=== PATIENT | male | born 1960 | race Caucasian/White ===

== ENCOUNTER 2021-09-09 09:34 | Inpatient (IN) | payer OTHER ==
[~2021-09-09] VITALS: Ht 167.6 cm; Wt 80.2 kg
[2021-09-09] MEDS ORDERED: AMLO5 PO (09:51)
[2021-09-09] MEDS ORDERED: ATOR40TA PO (09:52)
[2021-09-09] MEDS ORDERED: CITALOPRAM HBR40 M6 PO (09:53)
[2021-09-09] MEDS ORDERED: LEVE500 PO (09:53)
[2021-09-09] MEDS ORDERED: DIAZEPAM5 M2 PO (09:54)
[2021-09-09] MEDS ORDERED: Ropinirole HCl5 MG PO (09:54)
[2021-09-09] MEDS ORDERED: MONT10T PO (09:54)
[2021-09-09] MEDS ORDERED: Ventolin/Prove6.7 GM INH (09:55)
[2021-09-09] MEDS ORDERED: ASPI325 PO (09:55)
[2021-09-09] MEDS ORDERED: BACLOFEN10 M4 PO (09:55)
[2021-09-09 10:02] LABS: BASOPHILS ABSOLUTE AUTO 0.02 K/mm3 (0.00-0.23); BASOPHILS PERCENT AUTO 0 % (0-2); EOSINOPHILS PERCENT AUTO 0 % (0-6); Hematocrit 49.8 % (37.0-53.0); Hemoglobin 15.8 g/dL (13.5-17.5); IMMATURE GRAN ABSOLUTE AUTO 0.06 K/mm3 (0.00-0.10); IMMATURE GRAN PERCENT AUTO 0 % (0-1); LYMPHOCYTES ABSOLUTE AUTO 0.84 K/mm3 (0.84-5.20); LYMPHOCYTES PERCENT AUTO 6 % (21-46); MONOCYTES ABSOLUTE AUTO 0.74 K/mm3 (0.16-1.47); MONOCYTES PERCENT AUTO 5 % (4-13); Mean Corpuscular HGB 30.7 pg (26.0-34.0); Mean Corpuscular HGB Conc 31.7 g/dL (31.5-36.5); Mean Corpuscular Volume 97 fL (80-100); Mean Platelet Volume 9.7 fL (9.1-12.4); NEUTROPHILS ABSOLUTE AUTO 13.04 K/mm3 (1.96-9.15); NEUTROPHILS PERCENT AUTO 89 % (41-73); Platelet Count 319 K/mm3 (150-400); RDW Coefficient Variation 12.6 % (11.7-14.2); RDW Standard Deviation 45.2 fL (35.1-46.3); Red Blood Cell Count 5.15 M/mm3 (4.30-5.90)
[2021-09-09 10:13] LABS: Alanine Aminotransfer (ALT/SGP 45 U/L (12-78); Albumin, Blood 3.1 g/dL (3.4-5.0); Albumin/Globulin Ratio 0.6 (0.8-1.8); Alk Phos 123 U/L (50-136); Anion Gap 8 mmol/L (6-16); Aspartate Aminotrans (AST/SGOT 58 U/L (12-37); Bilirubin, Total 0.7 mg/dL (0.1-1.0); Blood Urea Nitrogen 13 mg/dL (8-24); CO2, Blood 28 mmol/L (21-32); Calcium, Blood 8.9 mg/dL (8.5-10.1); Chloride, Blood 104 mmol/L (98-108); Creatinine, Blood 0.81 mg/dL (0.60-1.20); Globulin, Blood 5.3 g/dL (2.2-4.0); Glomerular Filtration Rate >60 (60-); Glucose, Blood 165 mg/dL (70-99); Potassium, Blood 5.2 mmol/L (3.5-5.5); Sodium, Blood 140 mmol/L (136-145); Total Protein, Blood 8.4 g/dL (6.4-8.2)
[2021-09-09 10:39] LABS: Influenza A, PCR NEGATIVE (NEGATIVE); Influenza B, PCR NEGATIVE (NEGATIVE); Resp Syncytial Virus, PCR NEGATIVE (NEGATIVE); SARS-Cov-2 (COVID-19) PCR, MMC NEGATIVE (NEGATIVE)
--- NOTE | 2021-09-09 13:49 | NUR ---
ER ADMIT Pt arrived to his room from the ER and was assisted to bed. He is a/o x 4. 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 He is currently on 4 LPM via [place] with sats in the . IV fluids are infusing as ordered. Charge nurse is calling the sister for a current med list. He is able to make his needs known and has his call light and personal items in reach.
[2021-09-09] MEDS ORDERED: FISH OIL PO (13:59)
[2021-09-09] MEDS ORDERED: Vitamin B-Comp1 EACH PO (13:59)
[2021-09-09] MEDS ORDERED: CENTRUM SILVER1 EAC2 PO (14:00)
[2021-09-09] MEDS ORDERED: QVAR REDIHALE10.6 G2 INH (14:01)
[2021-09-09] MEDS ORDERED: ANORO ELLIPTA1 EACH INH (14:02)
--- NOTE | 2021-09-09 16:50 | NUR ---
SHIFT SUMMARY Pt remains a/o x 4 at baseline. A new IV was started so that he was able to bend his right arm and his IV fluids are infusing as ordered. He is drinking PO fluids as well. He remains on the NC @ 4 LPM with no resp distress. The charge nurse reconciled his home meds with the sister. He is resting in bed now as he reports that he sleeps for 12-14 hours a day normally. He has his call light and personal items within reach.
--- NOTE | 2021-09-10 05:52 | NUR ---
SHIFT SUMMARY PT ALERT AND ORIENTED X4. HR TAMI/SR. BRADYCARDIC WHILE SLEEPING. HR WILL TOUCH INTO 39'S AT TIMES UNTIL BOUNCING BACK TO MID 40'S AND 50'S. BP STABLE. ON 4L MAINTAINING SATS OVER 94%. EXP WHEEZING. SLEEPY THROUGHOUT NIGHT. RASH ON NECK/CHEST. LEFT SIDED DEFICIT D/T STROKE IN 2009. NS RUNNING AT 150/HR. IN BED SLEEPING WITH CALL ALARM AT SIDE. VOIDS INDEPENDENTLY. WILL CONTINUE TO MONITOR UNTIL REPORT GIVEN TO DAYSHIFT RN.
[2021-09-10 06:18] LABS: BASOPHILS ABSOLUTE AUTO 0.01 K/mm3 (0.00-0.23); BASOPHILS PERCENT AUTO 0 % (0-2); EOSINOPHILS PERCENT AUTO 0 % (0-6); Hematocrit 43.1 % (37.0-53.0); IMMATURE GRAN ABSOLUTE AUTO 0.03 K/mm3 (0.00-0.10); IMMATURE GRAN PERCENT AUTO 0 % (0-1); LYMPHOCYTES ABSOLUTE AUTO 1.22 K/mm3 (0.84-5.20); LYMPHOCYTES PERCENT AUTO 13 % (21-46); MONOCYTES ABSOLUTE AUTO 0.19 K/mm3 (0.16-1.47); MONOCYTES PERCENT AUTO 2 % (4-13); Mean Corpuscular HGB 30.9 pg (26.0-34.0); Mean Corpuscular HGB Conc 32.5 g/dL (31.5-36.5); Mean Corpuscular Volume 95 fL (80-100); Mean Platelet Volume 9.3 fL (9.1-12.4); NEUTROPHILS ABSOLUTE AUTO 8.33 K/mm3 (1.96-9.15); NEUTROPHILS PERCENT AUTO 85 % (41-73); Platelet Count 273 K/mm3 (150-400); RDW Coefficient Variation 12.4 % (11.7-14.2); RDW Standard Deviation 43.2 fL (35.1-46.3); Red Blood Cell Count 4.53 M/mm3 (4.30-5.90); White Blood Cell Count 9.78 K/mm3 (4.00-11.30)
[2021-09-10 06:45] LABS: Alanine Aminotransfer (ALT/SGP 36 U/L (12-78); Albumin, Blood 2.6 g/dL (3.4-5.0); Albumin/Globulin Ratio 0.6 (0.8-1.8); Alk Phos 95 U/L (50-136); Anion Gap 4 mmol/L (6-16); Aspartate Aminotrans (AST/SGOT 19 U/L (12-37); Bilirubin, Total 0.4 mg/dL (0.1-1.0); Blood Urea Nitrogen 12 mg/dL (8-24); Bun/Creatinine Ratio 19.4 (12.0-20.0); CO2, Blood 28 mmol/L (21-32); Calcium, Blood 8.5 mg/dL (8.5-10.1); Chloride, Blood 108 mmol/L (98-108); Creatinine, Blood 0.62 mg/dL (0.60-1.20); Globulin, Blood 4.2 g/dL (2.2-4.0); Glomerular Filtration Rate >60 (60-); Glucose, Blood 130 mg/dL (70-99); Potassium, Blood 4.5 mmol/L (3.5-5.5); Sodium, Blood 140 mmol/L (136-145); Total Protein, Blood 6.8 g/dL (6.4-8.2)
--- NOTE | 2021-09-10 13:02 | NUR ---
PT REPORTED IV SITE TO LEFT UPPER ARM PAINFUL. ON ASSESSMENT, LEFT UPPER ARM APPEARS SWOLLEN AND FIRM, NS RUNNING THROUGH IV APPEARS TO HAVE INFILTRTATED. SWELLING AND FIRMNESS AROUND BICEPT AND AROUND ARM MEDIALLY TO THE DORSAL SIDE. IV REMOVED, CATHETER INTACT. CLEAR FLUID FILLED BILSTERS FORMED ON SKIN WHERE TAPE WAS REMOVED AND DRAINED. COMPRESSION WRAP APPLIED TO SITE. WILL CONTINUE TO MONITOR.
--- NOTE | 2021-09-10 14:59 | NUR ---
REPORT GIVEN TO CARLA MACIAS.
--- NOTE | 2021-09-10 17:50 | NUR ---
SHIFT SUMMARY; ASSUMED CARE AT 1500, REPORT FROM ALIYA. RESTING IN BED, SPEAKING FULL SENTENCES. 4L 02 TO MAINTAIN SATS IN LOW 90'S. BREATHING DURING SHIFT. MOVES AROUND ON GURNEY WITHOUT DIFFICULTY. USES URINAL AT BEDSIDE. NO ACUTE DISTRESS, WILL CONTINUE TO MONITOR AND TREAT UNTIL CHANGE OF SHIFT.
--- NOTE | 2021-09-11 05:35 | NUR ---
SHIFT SUMMARY PT ALERT AND ORIENTED X4. ON BIPAP 07/02 25% FIO2 UNTIL 2229. ON NC 3-4L SINCE THEN, MAINTAINING SATS OVER 93%. EXPIRATORY WHEEZING T/O LUNGS BILATERALLY. WILL DESAT WHILE BLOWING NOSE TO LOW-MID 80'S AND RETURN TO 90'S WITH NC BACK IN PLACE. BP STABLE. HR 50-60'S. BRADYCARDIC AT TIMES WHILE SLEEPING. C/O INSOMNIA. RELIEVED PER EMAR. L SIDE DEFICIT D/T 2009 CVA. VOIDS WITH BEDSIDE URINAL. IN BED RESTING WITH CALL ALARM AT SIDE. WILL CONTINUE TO MONITOR UNTIL REPORT GIVEN TO DAYSHIFT RN
--- NOTE | 2021-09-11 09:35 | NUR ---
PT SP02 DECREASED TO 77%. RESPIRATIONS SHALLOW AND TACHYPNEIC. O2 VIA NC INCREASED TO 6L, PT ENCOURAGED TO COUGH, ABLE TO PRODUCE MODERATE AMOUNT OF THICK ALCARAZ SPUTUM. RT AT BEDSIDE TO ASSESS AND GIVE NEB. SP02 RECOVERED TO >90% ON 4L, SHALLOW TACHYPENIC RESPIRATIONS REMAIN. CONTINUOUS SPO2 MONITORING IN PLACE. WILL CONTINUE TO MONITOR.
--- NOTE | 2021-09-11 10:05 | NUR ---
PT PLACED ON BIPAP FOR INCREASED WORK OF BREATHING. RT AND DR SERRANO NOTIFIED.
--- NOTE | 2021-09-11 18:23 | NUR ---
PT REQUIRED MORE BIPAP SUPPORT TODAY AFTER EPISODE OF DESATURATION THIS AM. PT OFF BIPAP FOR LUNCH AND DINNER, NC AT 4L, TOLERATED WELL, DECREASE IN EXPIRATORY WHEEZES NOTED FROM THIS AM. PT'S SISTER UPDATED VIA TELEPHONE AT PT'S REQUEST. NO OTHER ACUTE EVENTS THIS SHIFT. WILL CONTINUE TO MONITOR AND GIVE REPORT TO ONCOMING RN.
--- NOTE | 2021-09-11 19:40 | NUR ---
PT IS A PLEASANT OLDER GENTLEMEN, RESTING IN BED, WATCHING TV. PT INSTRUCTED ON PRESSURE ULCER PREVENTION, AND REPORTS HIS UNDERSTANDING. PT IS ABLE TO TURN UNASSISTED IN BED, NOT LARGE TURNS, BUT ABLE TO TURN FOR PRESSURE ULCER PREVENTION. PT WAS ON BIPAP DURING ASSESSMENT 07/02/30%, BUT REQUESTED TO HAVE BIPAP OFF, AND HAVE NC PLACED ON - 4L O2 ON VIA NC - CONTINUOUS BIOX ON - SATS WNL. PT DENIES ANY CHEST PAIN, NAUSEA, OR SOB. PT REPORTS SOB WITH EXERTION, BUT DENIES ANY SOB WHILE IN BED. CALL LIGHT AT BEDSIDE. BED IN LOW POSTION. FLUIDS AT BEDSIDE.
--- NOTE | 2021-09-12 03:00 | NUR ---
PT REPOSITIONS SELF FROM HIS BACK TO HIS LEFT SIDE INDEPENDENTLY IN BED. PT CURRENTLY SLEEPING ON HIS LEFT SIDE. CALL LIGHT WITHIN REACH. BED IN LOW POSITION. FLUIDS AT BEDSIDE.
--- NOTE | 2021-09-12 03:46 | NUR ---
PT DENIES BEING SYMPTOMATIC WITH BRADYCARDIA - HEART RATE DROPS TO MID 40'S WHILE SLEEPING. CURRENTLY HR IS 50 - PT DENIES FEELING DIZZY, LIGHTHEADED OR SOB. CALL LIGHT WITHIN REACH. BED IN LOW POSITION. FLUIDS AT BEDSIDE. PT DENIES ANY REQUESTS AT THIS TIME.
[2021-09-12 05:31] LABS: BASOPHILS ABSOLUTE AUTO 0.01 K/mm3 (0.00-0.23); BASOPHILS PERCENT AUTO 0 % (0-2); EOSINOPHILS PERCENT AUTO 0 % (0-6); Hematocrit 40.3 % (37.0-53.0); Hemoglobin 12.9 g/dL (13.5-17.5); IMMATURE GRAN ABSOLUTE AUTO 0.02 K/mm3 (0.00-0.10); IMMATURE GRAN PERCENT AUTO 0 % (0-1); LYMPHOCYTES ABSOLUTE AUTO 1.12 K/mm3 (0.84-5.20); LYMPHOCYTES PERCENT AUTO 12 % (21-46); MONOCYTES ABSOLUTE AUTO 0.35 K/mm3 (0.16-1.47); MONOCYTES PERCENT AUTO 4 % (4-13); Mean Corpuscular HGB 30.9 pg (26.0-34.0); Mean Corpuscular Volume 97 fL (80-100); Mean Platelet Volume 9.4 fL (9.1-12.4); NEUTROPHILS ABSOLUTE AUTO 7.56 K/mm3 (1.96-9.15); NEUTROPHILS PERCENT AUTO 83 % (41-73); Platelet Count 250 K/mm3 (150-400); RDW Coefficient Variation 12.4 % (11.7-14.2); RDW Standard Deviation 44.3 fL (35.1-46.3); Red Blood Cell Count 4.17 M/mm3 (4.30-5.90); White Blood Cell Count 9.06 K/mm3 (4.00-11.30)
--- NOTE | 2021-09-12 05:38 | NUR ---
SHIFT SUMMARY - NO ACUTE CHANGES THROUGHOUT THIS SHIFT. WITH SLEEP, PT'S HEART RATE DOES GO INTO SINUS TAMI 40-50'S, HOWEVER PT DENIES ANY SYMPTOMS WITH SINUS TAMI. PT SAT'S WNL THROUGHOUT THE NIGHT ON 4L OXYGEN VIA NC. PT DENIES ANY REQUESTS THIS AM. FLUIDS AT BEDSIDE. CALL LIGHT WITHIN REACH. PT USING URINAL WITHOUT COMPLICATIONS. BED IN LOW POSITION. PT SLEPT FOR APPX 5-6 HOURS LAST NOC.
--- NOTE | 2021-09-12 09:30 | NUR ---
orthostatic blood pressures: lyin/89 mm Hg sittin/75 (87) pt c/o feeling lightheaded upon sitting on side of bed standin/81 (94)mmHg; denies feeling lightheaded when standing up
--- NOTE | 2021-09-12 15:36 | NUR ---
pt napping on bipap now for about an hour.
--- NOTE | 2021-09-12 16:02 | NUR ---
Pt is napping; wearing bipap, settings 12/8 and 21% FiO2; the pt had requested the bipap before napping since "then I can breathe through my mouth and my nose". Vital signs are stable. Left arm is elevated on 2 pillows to help reduce the swelling. NOC shift RN had reported an infiltrated IV with edema and superficial blistering of the skin. CHYNA wrap was noted over the left arm , but removed for a sponge bath this morning. NOted swelling both distal and proximal to the CHYNA wrap; it was removed. PT also wears a wrist splint on the left hand due to paralysis of left side s/p CVA 10+ years ago. Fingers were noted to be swollen at time of bath. Splint was also removed for the bath. Following the bath, pt requested wrist splint to be replaced, which it was. Vaseline gauze dressing was applied to the open broken string of blisters in two lines on the medial aspect of the left upper arm, reported area of IV infiltration, This was secured with kerlix. The left arm has been kept elevated on 2 pillows to help reduce swelling.
--- NOTE | 2021-09-12 16:22 | NUR ---
While sleeping, spo2 dropped to 85% on Fio2 of 21%. Increased Fio2 back to 30% and spo2 gradually improved to 90%, still while pt remained sleeping. RR 14/min.
--- NOTE | 2021-09-12 18:39 | NUR ---
Pt still requiring 2 l/min of oxygen delivery. Requiring 30% fio2 on bipap while sleeping to maintain spo2 90%.
--- NOTE | 2021-09-12 18:43 | NUR ---
Pt was weaned down to 2 l/min of oxygen today. Got up to chair, sat in chair after breakfast until about 11 am. He tolerated the activity very well. Appetite was good, voiding in urinal; states has not had BM since admission. Encouraged high fiber options on menu choices and provided pt with prune juice drink this afternoon. He requested the bipap before taking a nap this afternoon, states that way he "can breathe through my mouth and nose". Lung sounds were particularly wheezy this morning, noted throughout all lobes. This afternoon much less wheezing noted, however, some fine scattered inspiratory crackles noted. Pt very occasionally has a cough, but denies any sputum production. Noted sinus bradycardia to 40s while sleeping. Otherwise, sinus rhythm noted while awake during this day shift. Left arm blisters from infiltrated IV were dressed today after bath, using vaseline gauze and non adherent dressing secured with kerlix. No redness noted, but left arm is swollen. This arm is paralyzed due to a stroke the pt says occured 10+ years ago. Normally it is not swollen. It was elevated on 2 pillows and swelling was somewhat decreased this evening.
--- NOTE | 2021-09-13 05:46 | NUR ---
NO ACUTE EVENTS OVERNIGHT. PT CONTINUED ON 2 LPM NASAL CANNULA, EXPIRATORY WHEEZING PRESENT IN ALL LUNG MOHR, ONGOING ASSESSMENTS AND SCHEDULED BREATHING TREATMENTS ADMINISTERED BY RESPIRATORY THERAPISTS. NO COMPLAINTS OF SHORTNESS OF BREATH. PT WORE BIPAP FOR A PORTION OF THE NIGHT WHILE SLEEPING.
--- NOTE | 2021-09-13 08:56 | NUR ---
Assisted up to chair for breakfast at 0745. Pt tolerated the activity very well, no hypoxia nor dyspnea. He ate with a good appetite, took his morning medications, and did his own oral care. Also demonstrated use of his flutter valve.
--- NOTE | 2021-09-13 10:09 | NUR ---
Dr. Angel Long here to round on the patient. Pt is sitting up in chair, wearing oxygen 2 l/min n.c. delivery.
--- NOTE | 2021-09-13 10:15 | NUR ---
Assisted back to bed from chair at his request.
--- NOTE | 2021-09-13 12:25 | NUR ---
Dressing change complete to left upper arm, site of reported IV infiltration, edema and skin blisters/tears due to removal of adhesive tegederm CHG dressing at the time. Photos placed in the chart. Pt states that it is feeling much better, that the swelling has almost all gone.
--- NOTE | 2021-09-13 16:44 | NUR ---
Telephone report was given to Yen Fortune RN. Pt will be transferring to room 304
--- NOTE | 2021-09-13 17:06 | NUR ---
PATIENT ARRIVED TO ROOM 304 AT THIS TIME, FROM PCU, DX OF COPD EX. PATIENT ALERT AND ORIENTED X 4, ABLE TO VERBALIZE NEEDS. ON O2 AT 2L/MIN VIA N/C. HAS HX OF STROKE WITH L SIDE DEFICIT, BUT ABLE TO AMBULATE SBA WITH A CANE, WEARS A BRACE ON L WRIST. ON SOFT DIET, THIN LIQUIDS. DENIES PAIN OR DISCOMFORT.
--- NOTE | 2021-09-14 06:27 | NUR ---
SHIFT SUMMARY: NO SIGNIFICANT EVENTS OVERNIGHT, REMAINS ON 2L, EXP WHEEZE NOTED. LEFT SIDED WEAKNESS FROM PREVIOUS CVA. 1PA TO BSC. SOME DYSPNEA WITH EXERTION.
[2021-09-14] MEDS ORDERED: PRED20 PO (15:24)
[2021-09-14] MEDS ORDERED: MIRALAX17 GM PO (15:24)
--- NOTE | 2021-09-14 17:40 | NUR ---
DISCHARGE SUMMARY PATIENT DISCHARGED HOME. PRESCRIPTIONS FAXED TO PREFERRED PHARMACY. DISCHARGE PAPERWORK REVIEWED WITH PATIENT AND ALL QUESTIONS ANSWERED. PATIENT RECEIVED O2 TANK FROM [facility] AT HOSPITAL AND INSTRUCTED TO CALL [facility] ONCE HE ARRIVED HOME. PATIENT AND ALL BELONGINGS TAKEN VIA WHEELCHAIR TO PERSONAL VEHICLE.
== END 2021-09-14 16:52 | disposition home or self-care (01) | DRG 189 ==
LOC: ER 09:34 → PCU 11:47 → MEDS 09-13 16:54
PROVIDERS: Emergency Medicine; Family Medicine; Nurse Practitioner Acute Care; ADMIT Internal Medicine
PROC: 5A09357 Assistance with Respiratory Ventilation, Less than 24 Consecutive Hours, Continuous Positive Airway Pressure (ICD-10-PCS; principal; 2021-09-09)
DX: J96.21 Acute and chronic respiratory failure with hypoxia (principal); J44.1 Chronic obstructive pulmonary disease with (acute) exacerbation; I69.354 Hemiplegia and hemiparesis following cerebral infarction affecting left non-dominant side; R65.10 Systemic inflammatory response syndrome (SIRS) of non-infectious origin without acute organ dysfunction; E87.2 Acidosis; Z20.822 Contact with and (suspected) exposure to COVID-19; R00.1 Bradycardia, unspecified; K59.00 Constipation, unspecified; F32.A Depression, unspecified; I10 Essential (primary) hypertension; G40.909 Epilepsy, unspecified, not intractable, without status epilepticus; Z28.21 Immunization not carried out because of patient refusal; Z79.82 Long term (current) use of aspirin; Z79.899 Other long term (current) drug therapy; Z88.5 Allergy status to narcotic agent; Z87.891 Personal history of nicotine dependence
CPT/HCPCS: 0241U; 36415; 71045; 80053; 83605; 83880; 84145; 84484; 85025; 87040; 87070; 87205; 93005; 93010; 94640; 94660; 94667; 94668; 94760; 94761; 94762; 96365; 96375; 97110; 97162; 98960; 99285-25; A9270; J0456; J0696; J1650; J2930; J7030; J7050; J7512

== ENCOUNTER → 2021-09-19 | Outpatient (CLI) | payer OTHER ==
[~2021-09-19] MED LIST: AMLO5 PO; ANORO ELLIPTA1 EACH INH; ASPI325 PO; ATOR40TA PO; BACLOFEN10 M4 PO; CENTRUM SILVER1 EAC2 PO; CITALOPRAM HBR40 M6 PO; DIAZEPAM5 M2 PO; FISH OIL PO; LEVE500 PO; MIRALAX17 GM PO; MONT10T PO; PRED20 PO; QVAR REDIHALE10.6 G2 INH; Ropinirole HCl5 MG PO; Ventolin/Prove6.7 GM INH; Vitamin B-Comp1 EACH PO
== END | disposition home or self-care (01) ==
LOC: LAB 12:39 → LAB SHORT 12:39
DX: R00.1 Bradycardia, unspecified (principal)
CPT/HCPCS: 84443

== ENCOUNTER → 2023-06-22 | Outpatient (CLI) | payer OTHER | LOC: LAB 17:50 → LAB SHORT 17:50 | DX: J06.9 Acute upper respiratory infection, unspecified (principal) | CPT/HCPCS: 87081 ==